=== PATIENT | male | born 1990 | race Caucasian/White ===

== ENCOUNTER 2019-05-07 14:59 | Emergency (ER) | payer SELFPAY ==
[2019-05-07 15:01] VITALS: BP 136/87; PULSE 81; RESP 16; TEMP 36.8; O2SAT 98; BMI 26.4
[2019-05-07 15:05] VITALS: PULSE 75
--- NOTE | 2019-05-07 15:27 | CM.ED ---
Social Work Collaborating with Dr. Timmons, patient here for medication refill. Dr. Timmons does not see a need for social work consult at this time. Kaley Smith MSW, PRISCILA
--- NOTE | 2019-05-07 15:38 | ED.VIS.GEN ---
History of Present Illness Chief Complaint: Anxiety Informant: Patient Onset: Today Context: Sudden Onset Timing: Continuous Quality: Anxiety reaction Location: Work Current Severity: Mild Maximum Severity: Severe Worsened by: Nothing in particular Relieved by: Nothing Associated Symptoms: 10 minutes of sharp chest pain and bilateral paresthesia Narrative: Patient is a 29-year-old male with history of anxiety disorder. States his primary care physician provider would not refill his Paxil prescription. He has not taken Paxil in 1.5 weeks. He denies fever, chills night sweats. He denies visual, ocular auditory symptoms. He denies trouble speech or swallowing. He denies shortness of breath. He did report nausea along with the tingling. He states he also felt lightheaded. He denies black or maroon stool. He has no other complaints. Prior similar symptoms: Yes Recent Illness/Hospitalization: No - Past Medical History (1) History of anxiety and depression Status: Acute Past Medical History - Allergies and Home Meds Allergies/Adverse Reactions: Allergies gluten Allergy (Verified 05/07/19 15:04) Upset Stomach lactase [From [employer]] Allergy (Verified 05/07/19 15:04) Upset Stomach Primary Care Physician: Care Physician,No Primary [Primary Care Provider] - Prior records reviewed: Yes Surgical History: no surgical history Lives: Roommate Smoking Status: Never smoker Drugs: None Review of Systems General: Denies: Chills, Fever, Sweats Eyes: Denies: Visual changes - bilaterally, Diplopia ENT: Denies: Rhinorrhea, Sore throat Cardiovascular: Reports: Chest pain Respiratory: Denies: Dyspnea, Cough, Dyspnea on exertion Gastrointestinal: Reports: Nausea. Denies: Abdominal pain, Vomiting, Diarrhea, Constipation, Melena, Hematochezia Genitourinary: Denies: Dysuria, Hematuria, Frequency Musculoskeletal: Denies: Myalgias, Arthralgias, Neck pain, Back pain, Swelling, Extremity Pain Skin: Denies: Rash, Wounds Neurological: Reports: Parasthesia. Denies: Headache, Weakness, Numbness, -, - Hematologic: Denies: Easy bruising, Easy bleeding Allergy: Denies: Uticaria, Swelling of the mouth Physical Exam Vital Signs/Narrative: Vital Signs Temp Pulse Resp BP Pulse Ox 05/07/19 15:05 75 05/07/19 15:01 98.3 F 81 16 136/87 H 98 Inital Vital Signs reviewed: Yes General: Well nourished, Well developed, No Acute Distress Head: Normocephalic, Atraumatic Eyes: Perrl, EOMI ENT: Moist mucous membranes, No rhinorrhea Neck: Supple, Nontender Cardiovascular: Regular rate, Regular rhythm, No murmurs Respiratory: No distress, CTA bilaterally, Chest nontender Abdomen: Soft, Nontender, Nondistended, Normal bowel sounds Back: Nontender, Normal Inspection Extremities: Nontender, No edema Skin: Normal color, No rash Neurological: Alert, Oriented x3, Cranial nerves II-XII grossly intact, Normal Strength, Normal Sensation Psychological: Normal affect, Normal Mood Diagnostic/Tx/Re-eval - Medical Decision Making Patient's history and physical exam is consistent with anxiety reaction. Suspect this was made worse by the fact that he has not taken his anxiety medication in 1.5 weeks. He received 0.5 mg of Ativan in the department. He contacted his roommate who read the label on his empty prescription bottle. He is on generic Paxil 40 mg. Write prescription and have him follow-up with his primary care physician. ED Disposition - Plan for ED Patient: Disposition: Home or Assisted Living Diagnosis: Anxiety reaction Instructions: Anxiety Reaction Prescriptions: Paroxetine HCl [Paxil] 40 mg PO DAILY #30 tab Prescription Printed Referrals: Care Physician,No Primary [Primary Care Provider] - Camilo Mitchell MD [NON-STAFF] - 1 Week
[2019-05-07] MEDS: LORazepam 0.5 MG Tablet PO (15:50)
[2019-05-07 15:52] VITALS: BP 109/87; PULSE 78; RESP 14; O2SAT 98
== END 2019-05-07 15:57 | disposition home or self-care (01) ==
PROVIDERS: Emergency Provider Emergency Medicine
DX: F41.1 Generalized anxiety disorder (principal); F32.9 Major depressive disorder, single episode, unspecified
CPT/HCPCS: 99284